=== PATIENT | male | born 1965 | race Caucasian/White ===

== ENCOUNTER → 2017-03-13 | Outpatient (CLI) | payer BC, OTHER ==
[~2017-03-13] MED LIST: AMLO-110 PO; ASPI81TA28 PO; CALC667C4 PO; CARV25TA2 PO; CLON0.2D4 TOP; FERR1TAB68 PO; FURO80TA63 PO; LOSA50TA54 PO; MYC180 PO; OXYC1TAB3 PO; SEVE1TAB PO; TACR1CAP PO
== END | disposition home or self-care (01) ==
LOC: C.LAB 16:34

== ENCOUNTER 2017-03-17 11:15 | Emergency (ER) | payer BC, OTHER ==
[~2017-03-17] VITALS: Ht 188 cm; Wt 86.5 kg
[2017-03-17 11:17] VITALS: TEMP 37; Ht 188 cm; Wt 86.5 kg
--- NOTE | 2017-03-17 11:41 | EMERGENCY ROOM VISIT NOTE ---
History First contact with patient: 11:20 Chief Complaint: SHOULDER PAIN Stated Complaint: FELL ON SHOULDER History of Present Illness The patient is a 51 year old male who presents to the Emergency Room via private vehicle with complaints of "fell on shoulder". The patient states that yesterday evening he was carrying a heavy item when he tripped and fell onto his back. He states he did not strike his head or lose consciousness. Since then he has noted pain just below the left scapula inferiorly. He notes the pain as a 5/10. He does not want any pain medication at this time. He notes he is here today because he has a kidney transplant scheduled for April 01, and wants to make sure he has this evaluated prior to having the procedure. He also notes that he has dialysis later today. He denies any chest pain or shortness of breath. Pain is worse with movement. It is worse with a deep breath. Review of Systems A complete 6-point Review of Systems was discussed with the patient, with pertinent positives and negatives listed in the History of Present Illness. All remaining Review of Systems questions can be considered negative unless otherwise specified. Past Medical/Surgical History Kidney transplant, high blood pressure, kidney disease Family History High blood pressure Social History Social History: He is currently employed, feels safe at home, denies tobacco use, and admits to alcohol use. Current/Historical Medications Scheduled Amlodipine (Norvasc), 5 MG PO HS Aspirin (Aspirin Ec), 81 MG PO DAILY Calcium Acetate (Phoslo 667 Mg), 1,334 MG PO TID Carvedilol (Coreg), 50 MG PO QAM Carvedilol (Coreg), 25 MG PO HS Clonidine Hcl (Rslhuxxm-Vep-5), 1 PATCH TOP WK Ferric Citrate (Auryxia), 420 MG PO TID Furosemide (Lasix), 80 MG PO DAILY Losartan Potassium (Cozaar), 100 MG PO DAILY Mycophenolate Sodium (Mycophenolic Acid Dr), 180 MG PO Q12 Sevelamer Hydroch (Renagel), 800 MG PO TIDM Tacrolimus (Prograf), 3 MG PO HS Allergies Coded Allergies: No Known Allergies (Unverified , 03/17/17) Physical Exam Vital Signs Date Time Temp Pulse Resp B/P (MAP) Pulse Ox O2 Delivery O2 Flow Rate FiO2 03/17/17 12:43 77 18 128/87 100 03/17/17 11:17 37.0 74 16 131/89 99 Room Air Physical Exam VITAL SIGNS - Vital signs and nursing notes were reviewed. Patient is afebrile , blood pressure 131/89, non-tachycardic and is saturating well on room air 99%. GENERAL -51-year-old male appearing his stated age who is in no acute distress. Communicates well with provider and answers questions appropriately. SKIN - Without rashes. Skin overlying the back is unremarkable. There are no breaks in the integument. No bruising noted. No hematomas. HEAD - NC/AT. No evidence of trauma to the head. NECK - Neck with FROM. Supple to palpation. No C-spine tenderness. LUNGS - Chest wall symmetric without accessory muscle use, intercostals retractions, or central cyanosis. Normal vesicular breath sounds CTA B/L. No wheezes, rales, or rhonchi appreciated. EXTREMITIES - No clubbing or peripheral cyanosis. No pretibial edema present. Full range of motion of the extremities. +5/5 strength noted in UE/LE bilaterally. He is neurovascularly intact. MUSCULOSKELETAL: There is tenderness to palpation overlying the paraspinous musculature of the left thoracic spine as well as that inferior to the left scapula. There is no bony tenderness. Remainder of the spine exam is unremarkable. No other tenderness appreciated palpation. Full range of motion noted to the spine. Medical Decision & Procedures ER Provider Diagnostic Interpretation: THORACIC SPINE 3 VIEWS HISTORY: Trauma Left inferior scapular pain s/p fall COMPARISON: None. FINDINGS: Slight wedge deformity T7 of uncertain age. Moderate degenerative disc change throughout the entire thoracic region. No additional compression deformity. No significant retropulsion of any component of the vertebral system. No subluxation. IMPRESSION: Slight wedge deformity superior endplate T7 of uncertain age. Moderate degenerative disc change throughout. Electronically signed by: Miles Merlos M.D. 03/17/2017 12:00 PM Dictated Date/Time: 03/17/2017 11:59 AM Medical Decision Patient was seen and evaluated as above. After obtaining a thorough history and physical examination radiograph was obtained of the thoracic region to better evaluate the patient's subjective and objective examination findings. There was no bony tenderness. There was tense paraspinous musculature noted in the inferior scapular region. This was worse with palpation. Radiograph results as above. Slight wedge deformity superior endplate T7 of uncertain age noted. This will be treated as it is acute. Patient case was discussed with my attending. At this time conservative management is the best approach. I do not believe that a proposal specialist needs to be consult. There is no neurovascular deficit. The patient is here to evaluate for the pain that he is experiencing prior to surgery that is scheduled for the end of this month for kidney transplant. He declines pain medication. At this time I believe he is stable for discharge, he has dialysis later today and is to follow-up with his family doctor regarding today's findings. He was educated upon management today 's findings to include but not limited to decreased range of motion of the spine , limit lifting to 5 pounds and to follow-up with the family doctor. He'll be discharged home in good condition. In evaluation treatment this patient following differential diagnoses were entertained: Fracture, strain, pneumothorax, rib fracture, among others. At 4:05 PM on 03/18/2017 I was informed that the patient had called here to the emergency department stating that although yesterday he indicated he did not want pain medication, his pain had increased today and he was requesting pain medication. I called the patient personally, and discussed the case with him. He was instructed to return if his pain was worse or he develop new symptoms. He states that he would. It was agreed upon that he'll be provided with oxycodone immediate release. The call was ended. [facility] Monitoring Program Search Results: patient reviewed within database, no issues identified Impression Primary Impression: t7 wedge deformity Departure Information Dispostion Home / Self-Care Condition GOOD Prescriptions Oxycodone Ir (Roxicodone Ir) 5 Mg Tab 1-2 TAB PO Q4H Y for Pain, #21 TAB For Initial Treatment Prov: Martin Martinez PA-C 03/18/17 Referrals No Doctor, Assigned (PCP) Patient Instructions My [facility] Additional Instructions You have been treated in the Emergency Department for Back Pain. For pain control, you can use the following [id number] medicines (if >12 yo): Your regular medications as previously prescribed. Please do not lift anything over 5 pounds for the next 6 weeks. Please be very cautious with your bending movements. Please do not fully bend over. If this is an acute injury, ice can be applied to the area of pain for the first 3 days to help decrease pain and inflammation. After the first 3 days, a heating pad can be used over the area for continued soothing relief. You should schedule a follow-up appointment in 2-3 days with your Primary Care Provider for further evaluation and treatment of your back pain. Return to the Emergency Department if your current symptoms worsen despite treatment course outlined above, or if you develop any of the following symptoms : intractable pain despite aforementioned treatment course, loss of control of your bowel or bladder, numbness or tingling in your groin, or development of a fever. Please return to the emergency department with any new/concerning symptoms. XRAY: THORACIC SPINE 3 VIEWS HISTORY: Trauma Left inferior scapular pain s/p fall COMPARISON: None. FINDINGS: Slight wedge deformity T7 of uncertain age. Moderate degenerative disc change throughout the entire thoracic region. No additional compression deformity. No significant retropulsion of any component of the vertebral system. No subluxation.
[2017-03-17] MEDS ORDERED: TACR1CAP PO (11:52)
[2017-03-17] MEDS ORDERED: AMLO-110 PO (11:52)
[2017-03-17] MEDS ORDERED: CALC667C4 PO (11:52)
[2017-03-17] MEDS ORDERED: SEVE1TAB PO (11:52)
[2017-03-17] MEDS ORDERED: ASPI81TA28 PO (11:52)
[2017-03-17] MEDS ORDERED: FERR1TAB68 PO (11:52)
[2017-03-17] MEDS ORDERED: FURO80TA63 PO (11:52)
[2017-03-17] MEDS ORDERED: CARV25TA2 PO ×2 (11:52)
[2017-03-17] MEDS ORDERED: CLON0.2D4 TOP (11:52)
[2017-03-17] MEDS ORDERED: LOSA50TA54 PO (11:52)
[2017-03-17] MEDS ORDERED: MYC180 PO (11:52)
--- NOTE | 2017-03-17 12:01 | DIAGNOSTIC IMAGING REPORT ---
THORACIC SPINE 3 VIEWS HISTORY: Trauma Left inferior scapular pain s/p fall COMPARISON: None. FINDINGS: Slight wedge deformity T7 of uncertain age. Moderate degenerative disc change throughout the entire thoracic region. No additional compression deformity. No significant retropulsion of any component of the vertebral system. No subluxation. IMPRESSION: Slight wedge deformity superior endplate T7 of uncertain age. Moderate degenerative disc change throughout. Electronically signed by: Miles Merlos M.D. 03/17/2017 12:00 PM Dictated Date/Time: 03/17/2017 11:59 AM
[2017-03-17 12:43] VITALS: BP 128/87; PULSE 77; O2SAT 100
[2017-03-18] MEDS ORDERED: OXYC1TAB3 PO (16:14)
== END 2017-03-17 12:44 | disposition home or self-care (01) ==
LOC: C.EDB 11:16 → C.EDD 12:44
DX: M53.84 Other specified dorsopathies, thoracic region (principal); W19.XXXA Unspecified fall, initial encounter; I10 Essential (primary) hypertension; N18.9 Chronic kidney disease, unspecified; Z79.82 Long term (current) use of aspirin